=== PATIENT | female | born 1970 | race Caucasian/White ===

== ENCOUNTER 2018-03-17 07:08 | Emergency (ER) | payer OTHER ==
--- OUTSIDE RECORDS SUMMARY | 2018-03-17 07:12 | XMS REPORT | Summary of Care ---
:1970 Author Organization [facility] Address [address] [place] [address]- Encounter [facility](FIN) [id number] Date(s): 03/02/18 - 03/05/[address] [address]- Discharge Disposition: Home or Self Care Attending Physician: Beltran Donohue MD Admitting Physician: Beltran Donohue MD Referring Physician: Beltran Donohue MD Vital Signs Most recent to oldest 1 2 3 [Reference Range]: Height 156.21 cm (02/19/18 10:21 AM) Temperature Oral [96.4-99.1 99.1 DegF 98.3 DegF 99.7 DegF DegF] (03/05/18 4:18 PM) (03/05/18 12:18 PM) *HI* (03/05/18 7:18 AM) Blood Pressure [90-140/60-90 114/72 mmHg 108/70 mmHg 117/75 mmHg mmHg] (03/05/18 4:18 PM) (03/05/18 12:18 PM) (03/05/18 7:18 AM) Respiratory Rate [14-20 18 BRMIN 18 BRMIN 18 BRMIN BRMIN] (03/05/18 4:18 PM) (03/05/18 12:18 PM) (03/05/18 7:18 AM) Peripheral Pulse Rate [60-100 97 bpm 91 bpm 104 bpm bpm] (03/05/18 4:18 PM) (03/05/18 12:18 PM) *HI* (03/05/18 7:18 AM) Weight 165.568 kg (02/19/18 10:21 AM) Body Mass Index 67.85 m2 (02/19/18 10:21 AM) Problem List Condition Effective Dates Status Health Status Informant Morbid obesity(Confirmed) Active Allergies, Adverse Reactions, Alerts Substance Reaction Severity Status penicillin Active aspirin Active NKFA Active Medications acetaminophen 1,000 mg, 31.23 mL, Route: PO, Drug form: LIQ, Q6H, Dosing Weight 165.568, kg, for > or=50 kg, Start date: 03/04/18 0:00:00 CDT, Duration: 30 day, Stop date : 04/02/18 18:00:00 CDT Notes: Max dpokjijkupxds=5030ig/day (4 gm/day). (Same as: Tylenol) Start Date: 03/04/18 Stop Date: 03/05/18 Status: Discontinuedacetaminophen 1,000 mg, 2 tab, Route: PO, Drug form: TAB, Q6H, Dosing Weight 165.568, kg, for > or=50 kg, Startdate: 03/02/18 18:00:00 CDT, Duration: 30 day, Stop date: 6:00:00 CDT Notes: Max acetaminophen 4000 mg/day (4 gm/day). (Same as: Tylenol Extra Strength) Start Date: 03/02/18 Stop Date: 03/03/18 Status: Discontinuedacetaminophen (ANES) Route: IV, Drug form: INJ, ONCE, Stop date: 03/02/18 11:56:00 CDT Start Date: 03/02/18 Stop Date: 03/02/18 Status: Completedacetaminophen-codeine 120 mg-12 mg/5 mL oral liquid 12.5 mL, PO, Q6H, PRN Pain, X 7 day, # 240 mL, 0 Refill(s) Start Date: 03/05/18 Stop Date: 03/12/18 Status: OrderedANES flumazenil 0.2 mg, 2 mL, Route: IVP, Drug form: INJ, PRN, Dosing Weight 165.568, kg, PRN Benzodiazepine Reversal, Initial dose, Start date: 03/02/18 10:24:00 CDT, Duration: 30 day, Stop date: 04/01/18 10:23:00 CDT Notes: (Same as: Romazicon) Start Date: 03/02/18 Stop Date: 03/02/18 Status: DiscontinuedANES HYDROmorphone 0.2 mg, 0.1 mL, Route: IVP, Drug form: INJ, Q5Min, Dosing Weight 165.568, kg, PRN Pain Score 7-10, Start date: 03/02/18 10:24:00 CDT, Duration: 4 doses or times, Stop date: Limited # of times Notes: Same as Dilaudid Start Date: 03/02/18 Stop Date: 03/02/18 Status: DiscontinuedANES labetalol 5 mg, 1 mL, Route: IVP, Drug form: INJ, Q5Min, Dosing Weight 165.568, kg, PRN Elevated BP, Start date: 03/02/18 10:24:00 CDT, Duration: 5 doses or times, Stop date: Limited # of times Notes: Give bolus over 2-3 minutes.(Same as:Normodyne) Start Date: 03/02/18 Stop Date: 03/02/18 Status: DiscontinuedANES naloxone 0.4 mg, 1 mL, Route: IVP, Drug form: INJ, Q2MIN, Dosing Weight 165.568, kg, PRN Narcotic Reversal, Start date: 03/02/18 10:24:00 CDT, Duration: 8 doses or times , Stop date: Limited # of times Notes: Same as Narcan Start Date: 03/02/18 Stop Date: 03/02/18 Status: DiscontinuedANES ondansetron 4 mg, 2 mL, Route: IVP, Drug form: INJ, ONCE, Dosing Weight 165.568, kg, PRN Nausea & Vomiting, Start date: 03/02/18 10:24:00 CDT Notes: (Same as: Jv) MEDICATION WASTE Product Size: 4 mgProduct Wasted: ___ mg Start Date: 03/02/18 Stop Date: 03/02/18 Status: DiscontinuedceFAZolin (ANES) Route: IV, Drug form: INJ, ONCE, Stop date: 03/02/18 11:56:00 CDT Start Date: 03/02/18 Stop Date: 03/02/18 Status: Deletedciprofloxacin 500 mg oral tablet 500 mg=1 tab, PO, Q12H, X 7 day, # 14 tab, 0 Refill(s) Start Date: 03/05/18 Stop Date: 03/12/18 Status: Ordereddexamethasone (ANES) Route: IV, Drug form: INJ, ONCE, Stop date: 03/02/18 11:56:00 CDT Start Date: 03/02/18 Stop Date: 03/02/18 Status: CompletedDilaudid 2 mg, 1 tab, Route: PO, Drug form: TAB, Q3H, Dosing Weight 165.568, kg, PRN Pain Score 7-10, IV to PO per pharmacy protocol due to critical shortage of IV dilaudid, Start date: 03/02/18 15:16:00 CDT, Stop date: 04/01/18 15:15:00 CDT Notes: (Same as: Dilaudid) Start Date: 03/02/18 Stop Date: 03/04/18 Status: Discontinuedenoxaparin 40 mg, 0.4 mL, Route: SUB-Q, Drug form: INJ, Q12H, Dosing Weight 165.568, kg, Start date: 03/03/18 3:30:00 CDT, Stop date: 04/01/18 3:30:00 CDT Notes: (Same as: Lovenox) Start Date: 03/03/18 Stop Date: 03/05/18 Status: DiscontinuedfentaNYL (ANES) Route: IV, Drug form: INJ, ONCE, Stop date: 03/02/18 14:17:00 CDT Start Date: 03/02/18 Stop Date: 03/02/18 Status: CompletedfentaNYL (ANES) Route: IV, Drug form: INJ, ONCE, Stop date: 03/02/18 12:07:00 CDT Start Date: 03/02/18 Stop Date: 03/02/18 Status: CompletedFlagyl 500 mg oral tablet 500 mg=1 tab, PO, Q8H, X 7 day, # 21 tab, 0 Refill(s) Start Date: 03/05/18 Stop Date: 03/12/18 Status: OrderedhydrALAZINE 10 mg, 0.5 mL, Route: IVP, Drug form: INJ, ONCE, Dosing Weight 165.568, kg, Start date: 03/02/18 18:15:00 CDT, Stop date: 03/02/18 18:15:00 CDT Notes: (Same as: Apresoline)Push over 5 minutes Start Date: 03/02/18 Stop Date: 03/04/18 Status: CompletedhydrALAZINE 10 mg, 0.5 mL, Route: IV, Drug form: INJ, ONCE, Dosing Weight 165.568, kg, Priority: NOW, Start date: 03/02/18 18:15:00 CDT, Stop date: 03/02/18 18:15:00 CDT Notes: (Same as: Apresoline)Push over 5 minutes Start Date: 03/02/18 Stop Date: 03/02/18 Status: CompletedLactated Ringers (Bolus) IV 1,000 mL, 1,000 ml/hr, Infuse Over: 1 hr, Route: IV, 1,000, Drug form: INJ, ONCE , Priority: STAT, Dosing Weight 165.568 kg, Start date: 03/03/18 19:46:00 CDT, Stop date: 03/03/18 19:46:00 CDT Start Date: 03/03/18 Stop Date: 03/03/18 Status: CompletedLactated Ringers (Bolus) IV 1,000 mL, 1,000 ml/hr, Infuse Over: 1 hr, Route: IV, 1,000, Drug form: INJ, ONCE , Priority: STAT, Dosing Weight 165.568 kg, Start date: 03/03/18 20:21:00 CDT, Stop date: 03/03/18 20:21:00 CDT Start Date: 03/03/18 Stop Date: 03/04/18 Status: CompletedLactated Ringers Injection IV (ANES) 1000 mL Route: IV, Total Volume: 1,000, Start date: 03/02/18 11:01:00 CDT, Stop date: 12:01:00 CDT Start Date: 03/02/18 Stop Date: 03/02/18 Status: CompletedLactated Ringers Injection IV 1,000 mL 1,000 mL, Rate: 125 ml/hr, Infuse over: 8 hr, Route: IV, Dosing Weight 165.568 kg, Total Volume: 1,000, Start date: 03/02/18 15:14:00 CDT, Stop date: 03/03/18 15:13:00 CDT, 2.75, m2 Start Date: 03/02/18 Stop Date: 03/03/18 Status: CompletedLactated Ringers IV 1,000 mL 1,000 mL, Rate: 80 ml/hr, Infuse over: 12.5 hr, Route: IV, Dosing Weight 165.568 kg, Total Volume: 1,000, Priority: STAT, Start date: 03/02/18 15:14:00 CDT, Duration: 30 day, Stop date: 04/01/18 15:13:00 CDT, 2.75, m2 Start Date: 03/02/18 Stop Date: 03/05/18 Status: Discontinuedlidocaine (ANES) Route: IV, Drug form: INJ, ONCE, Stop date: 03/02/18 12:07:00 CDT Start Date: 03/02/18 Stop Date: 03/02/18 Status: Completedlidocaine 1% injectable solution 0.05 gm, Route: SUB-Q, Drug Form: INJ, Dosing Weight 165.568, kg, ONCE, Start date: 03/05/18 12:32:00 CDT, Stop date: 03/05/18 12:32:00 CDT Notes: Preservative free. (Same as: Xylocaine MPF) Start Date: 03/05/18 Stop Date: 03/05/18 Status: Completedmidazolam (ANES) Route: IV, Drug form: SOLN, ONCE, Stop date: 03/02/18 12:07:00 CDT Start Date: 03/02/18 Stop Date: 03/02/18 Status: Completedondansetron 4 mg, 1 tab, Route: SL, Drug form: TABDIS, Q12H, Dosing Weight 165.568, kg, PRN Nausea & Vomiting, Start date: 03/02/18 15:14:00 CDT, Stop date: 04/01/18 15 :13:00 CDT Notes: (Same as: Zofran ODT) Start Date: 03/02/18 Stop Date: 03/05/18 Status: Discontinuedpromethazine 12.5 mg, 50 mL, Route: IVPB, Drug form: SOLN, Q4H, Dosing Weight 165.568, kg, PRN Nausea & Vomiting, Start date: 03/02/18 15:14:00 CDT, Duration: 30 day, Stop date: 04/01/18 15:13:00 CDT Start Date: 03/02/18 Stop Date: 03/04/18 Status: Discontinuedpropofol (ANES) Route: IV, Drug form: INJ, ONCE, Stop date: 03/02/18 12:07:00 CDT Start Date: 03/02/18 Stop Date: 03/02/18 Status: CompletedProtonix 40 mg, 1 tab, Route: PO, Drug form: ECTAB, Daily, Dosing Weight 165.568, kg, Start date: 03/03/18 16:30:00 CDT, Stop date: 04/01/18 16:30:00 CDT Notes: Tablet should not be chewed or crushed.(Same as: Protonix) Start Date: 03/03/18 Stop Date: 03/05/18 Status: DiscontinuedReglan 10 mg, 2 mL, Route: IVP, Drug form: INJ, Q6H, Dosing Weight 165.568, kg, PRN as needed for nausea/vomiting, Start date: 03/04/18 17:01:00 CDT, Duration: 1 day, Stop date: 03/05/18 17:00:00 CDT Notes: (Same as: Reglan) Start Date: 03/04/18 Stop Date: 03/05/18 Status: DiscontinuedReglan 10 mg, 2 mL, Route: IVP, Drug form: INJ, Q6H, Dosing Weight 165.568, kg, Priority: NOW, Start date: 03/03/18 22:00:00 CDT, Duration: 1 day, Stop date: 18:00:00 CDT Notes: (Same as: Reglan) Start Date: 03/03/18 Stop Date: 03/04/18 Status: Discontinuedremove patch 1 patch, Route: TOP, Drug form: ERFILM, Q72H, PRN Other -See Comment, Start date : 03/03/18 22:46:00 CDT, Duration: 30 day, Stop date: 04/02/18 22:45:00 CDT Start Date: 03/03/18 Stop Date: 03/05/18 Status: Discontinuedrocuronium (ANES) Route: IV, Drug form: INJ, ONCE, Stop date: 03/02/18 12:07:00 CDT Start Date: 03/02/18 Stop Date: 03/02/18 Status: Completedrocuronium (ANES) Route: IV, Drug form: INJ, ONCE, Stop date: 03/02/18 12:47:00 CDT Start Date: 03/02/18 Stop Date: 03/02/18 Status: Completedscopolamine 1.5 mg transdermal film 1 patch, Route: TOP, Drug Form: ERFILM, Dosing Weight 165.568, kg, Q72H, PRN Nausea & Vomiting, NOW, Start date: 03/03/18 22:00:00 CDT, Duration: 30 day , Stop date: 04/02/18 21:59:00 CDT Notes: Change patch every 72 hours (Same as: Transderm-Scop) Start Date: 03/03/18 Stop Date: 03/05/18 Status: Discontinuedsugammadex (ANES) Route: IV, Drug form: SOLN, ONCE, Stop date: 03/02/18 14:59:00 CDT Start Date: 03/02/18 Stop Date: 03/02/18 Status: CompletedTylenol with Codeine #3 oral tablet 12.5 mL, Route: PO, Drug Form: LIQ, Dosing Weight 165.568, kg, Q4H, PRN Pain Score 1-3, Start date: 03/03/18 20:03:00 CDT, Stop date: 04/02/18 20:02:00 CDT Notes: (acetaminophen-codeine 120-12 mg/5 ml oral liq) Do not exceed 4gm/day of acetaminophen. (Same as: Tylenol w/Codeine) Start Date: 03/03/18 Stop Date: 03/05/18 Status: DiscontinuedTylenol with Codeine #3 oral tablet 1 tab, PO, Q4H, PRN Pain Score 1-3, X 5 day, # 30 tab, 0 Refill(s) Start Date: 03/03/18 Stop Date: 03/05/18 Status: DiscontinuedTylenol with Codeine #3 oral tablet 1 tab, Route: PO, Drug Form: TAB, Dosing Weight 165.568, kg, Q4H, PRN Pain Score 1-3, Start date: 03/03/18 6:56:00 CDT, Duration: 30 day, Stop date: 6:55:00 CDT Notes: Do not exceed 4gm/day of acetaminophen. (Same as: Tylenol with Codeine # 3) Start Date: 03/03/18 Stop Date: 03/03/18 Status: Discontinuedvancomycin 2 gm, 500 mL, Route: IVPB, Drug form: SOLN, PRE OP, Start date: 03/02/18 2:00: 00 CDT, Stop date: 03/02/18 23:00:00 CDT, ABX Indication: Surgical Prophylaxis Notes: TIME CRITICAL MEDICATIONSame as: Vancocin Infusion rate< 1000 mg: infuse over 1 [id number] - 1500 mg: infuse over 1.5 [id number] - 2000 mg: infuse over 2 hours> 2001 mg: infuse over 2.5 hours Start Date: 03/02/18 Stop Date: 03/05/18 Status: Discontinuedvancomycin (ANES) Route: IV, Drug form: INJ, ONCE, Stop date: 03/02/18 11:56:00 CDT Start Date: 03/02/18 Stop Date: 03/02/18 Status: CompletedZofran ODT 4 mg, Route: PO, Drug form: TABDIS, ONCE, Dosing Weight 165.568, kg, Start date : 03/02/18 9:23:00 CDT, Stop date: 03/02/18 9:23:00 CDT Start Date: 03/02/18 Stop Date: 03/02/18 Status: Completed Results BLOOD BANK RESULTS Most recent to oldest [Reference Range]: 1 2 3 ABO/Rh B POS *Unknown* (03/02/18 9:45 AM) Antibody Scrn Negative (03/02/18 9:45 AM) ELECTROLYTES Most recent to oldest 1 2 3 [Reference Range]: Sodium Lvl [135-145 mEq/L] 143 mEq/L 142 mEq/L 141 mEq/L (03/05/18 4:00 AM) (03/04/18 3:50 AM) (03/03/18 5:01 AM) Potassium Lvl [3.5-5.1 3.8 mEq/L 3.7 mEq/L 3.8 mEq/L mEq/L] (03/05/18 4:00 AM) (03/04/18 3:50 AM) (03/03/18 5:01 AM) Chloride Lvl [95-109 mEq/L] 106 mEq/L 104 mEq/L 105 mEq/L (03/05/18 4:00 AM) (03/04/18 3:50 AM) (03/03/18 5:01 AM) CO2 [24-32 mEq/L] 25 mEq/L 28 mEq/L 24 mEq/L (03/05/18 4:00 AM) (03/04/18 3:50 AM) (03/03/18 5:01 AM) AGAP [10.0-20.0 mEq/L] 15.8 mEq/L 13.7 mEq/L 15.8 mEq/L (03/05/18 4:00 AM) (03/04/18 3:50 AM) (03/03/18 5:01 AM) CHEM PANEL Most recent to oldest 1 2 3 [Reference Range]: Creatinine Lvl [0.50-1.40 0.75 mg/dL 0.80 mg/dL 0.87 mg/dL mg/dL] (03/05/18 4:00 AM) (03/04/18 3:50 AM) (03/03/18 5:01 AM) eGFR 95 mL/min/1.73m2 1 88 mL/min/1.73m2 2 80 mL/min/1.73m2 3 *NA* *NA* *NA* (03/05/18 4:00 AM) (03/04/18 3:50 AM) (03/03/18 5:01 AM) BUN [7-22 mg/dL] 7 mg/dL 8 mg/dL 12 mg/dL (03/05/18 4:00 AM) (03/04/18 3:50 AM) (03/03/18 5:01 AM) B/C Ratio [6-25] 16 (02/19/18 11:40 AM) Glucose Lvl [70-99 mg/dL] 105 mg/dL 99 mg/dL 131 mg/dL *HI* (03/04/18 3:50 AM) *HI* (03/05/18 4:00 AM) (03/03/18 5:01 AM) Total Protein [6.4-8.4 8.1 g/dL g/dL] (02/19/18 11:40 AM) Albumin Lvl [3.5-5.0 g/dL] 3.7 g/dL (02/19/18 11:40 AM) Globulin [2.7-4.2 g/dL] 4.4 g/dL *HI* (02/19/18 11:40 AM) A/G Ratio [0.7-1.6] 0.8 (02/19/18 11:40 AM) Calcium Lvl [8.5-10.5 7.9 mg/dL 8.3 mg/dL 8.6 mg/dL mg/dL] *LOW* *LOW* (03/03/18 5:01 AM) (03/05/18 4:00 AM) (03/04/18 3:50 AM) ALT [0-65 unit/L] 39 unit/L (02/19/18 11:40 AM) AST [0-37 unit/L] 25 unit/L (02/19/18 11:40 AM) Alk Phos [39-136 unit/L] 79 unit/L (02/19/18 11:40 AM) Bili Total [0.2-1.3 mg/dL] 0.9 mg/dL (02/19/18 11:40 AM) Vitamin B1 [66.5-200.0 128.0 nMol/L 4 nMol/L] *NA* (02/19/18 11:40 AM) Vitamin D, 25-OH, Total 7.4 ng/mL [30.0-100.0 ng/mL] *LOW* (02/19/18 11:40 AM) 1Result Comment: The eGFR is calculated using the CKD-EPI formula. In most young , healthy individualsthe eGFR will be >90 mL/min/1.73m2. The eGFR declines with age. An eGFR of 60-89 may be normal insome populations, particularly the elderly, for whom the CKD-EPI formula has not been extensively validated. Use of the eGFR is not recommended in the following populations: Individuals with unstable creatinine concentrations, including patients and those with serious co-morbid conditions. Patients with extremes in muscle mass or diet. The data above are obtained from the National Kidney Disease Education Program ( NKDEP) which additionally recommends that when the eGFR is used in patients with extremes of body mass index for purposesof drug dosing, the eGFR should be multiplied by the estimated BMI.2Result Comment: The eGFR is calculated using the CKD-EPI formula. In most young, healthy individualsthe eGFR will be >90 mL/min/1.73m2. The eGFR declines with age. An eGFR of 60-89 may be normal insome populations, particularly the elderly, for whom the CKD-EPI formula has not been extensively validated. Use of the eGFR is not recommended in the following populations: Individuals with unstable creatinine concentrations, including patients and those with serious co-morbid conditions. Patients with extremes in muscle mass or diet. The data above are obtained from the National Kidney Disease Education Program ( NKDEP) which additionally recommends that when the eGFR is used in patients with extremes of body mass index for purposesof drug dosing, the eGFR should be multiplied by the estimated BMI.3Result Comment: The eGFR is calculated using the CKD-EPI formula. In most young, healthy individualsthe eGFR will be >90 mL/min/1.73m2. The eGFR declines with age. An eGFR of 60-89 may be normal insome populations, particularly the elderly, for whom the CKD-EPI formula has not been extensively validated. Use of the eGFR is not recommended in the following populations: Individuals with unstable creatinine concentrations, including patients and those with serious co-morbid conditions. Patients with extremes in muscle mass or diet. The data above are obtained from the National Kidney Disease Education Program ( NKDEP) which additionally recommends that when the eGFR is used in patients with extremes of body mass index for purposesof drug dosing, the eGFR should be multiplied by the estimated BMI.4Result Comment: This test was developed and its performance characteristics determined by [facility]. It has not been cleared or approved by the Food and Drug Administration. Performed At: [address] [id number] Candida Grullon MD Ph:[phone] Most recent to oldest [Reference Range]: 1 2 3 S Preg [Negative] Negative *NA* (03/02/18 10:15 AM) URINE AND STOOL Most recent to oldest [Reference Range]: 1 2 3 UA Turbidity [Clear] Slight *ABN* (02/19/18 10:15 AM) UA Color [Yellow] Yellow *NA* (02/19/18 10:15 AM) UA pH [5.0-8.0] 5.0 (02/19/18 10:15 AM) UA Spec Grav [<=1.030] 1.021 (02/19/18 10:15 AM) UA Glucose [Negative mg/dL] Negative mg/dL *NA* (02/19/18 10:15 AM) UA Blood [Negative] Small *ABN* (02/19/18 10:15 AM) UA Ketones [Negative mg/dL] Trace mg/dL *ABN* (02/19/18 10:15 AM) UA Protein [Negative mg/dL] Negative mg/dL (02/19/18 10:15 AM) UA Urobilinogen [0.1-1.0 mg/dL] 2.0 mg/dL *HI* (02/19/18 10:15 AM) UA Bili [Negative] Negative *NA* (02/19/18 10:15 AM) UA Leuk Est [Negative] Moderate *ABN* (02/19/18 10:15 AM) UA Nitrite [Negative] Negative (02/19/18 10:15 AM) UA WBC [0-5 /HPF] 4 /HPF (02/19/18 10:15 AM) UA RBC [0-2 /HPF] 1 /HPF (02/19/18 10:15 AM) UA Bacteria [None Seen /HPF] Occasional /HPF *NA* (02/19/18 10:15 AM) UA Sq Epi [Few /LPF] Moderate /LPF *ABN* (02/19/18 10:15 AM) UA Hyal Cast [0-2 /LPF] 3 /LPF *HI* (02/19/18 10:15 AM) UA Mucus [None Seen /LPF] Few /LPF *NA* (02/19/18 10:15 AM) Micro? Performed *NA* (02/19/18 10:15 AM) HEMATOLOGY Most recent to oldest 1 2 3 [Reference Range]: WBC [3.7-10.4 K/CMM] 11.6 K/CMM 11.3 K/CMM 12.8 K/CMM *HI* *HI* *HI* (03/05/18 4:00 AM) (03/04/18 3:50 AM) (03/03/18 7:49 PM) RBC [4.20-5.40 M/CMM] 4.08 M/CMM 4.18 M/CMM 4.56 M/CMM *LOW* *LOW* (03/03/18 7:49 PM) (03/05/18 4:00 AM) (03/04/18 3:50 AM) Hgb [12.0-16.0 g/dL] 12.4 g/dL 12.5 g/dL 13.9 g/dL (03/05/18 4:00 AM) (03/04/18 3:50 AM) (03/03/18 7:49 PM) Hct [36.0-48.0 %] 37.7 % 38.8 % 42.0 % (03/05/18 4:00 AM) (03/04/18 3:50 AM) (03/03/18 7:49 PM) MCV [80.0-98.0 fL] 92.3 fL 92.8 fL 92.0 fL (03/05/18 4:00 AM) (03/04/18 3:50 AM) (03/03/18 7:49 PM) MCH [27.0-31.0 pg] 30.3 pg 30.0 pg 30.4 pg (03/05/18 4:00 AM) (03/04/18 3:50 AM) (03/03/18 7:49 PM) MCHC [32.0-36.0 g/dL] 32.8 g/dL 32.3 g/dL 33.0 g/dL (03/05/18 4:00 AM) (03/04/18 3:50 AM) (03/03/18 7:49 PM) RDW [11.5-14.5 %] 15.0 % 15.2 % 15.2 % *HI* *HI* *HI* (03/05/18 4:00 AM) (03/04/18 3:50 AM) (03/03/18 7:49 PM) MPV [7.4-10.4 fL] 9.7 fL 10.1 fL 9.3 fL (03/05/18 4:00 AM) (03/04/18 3:50 AM) (03/03/18 7:49 PM) Platelet [133-450 K/CMM] 261 K/CMM 293 K/CMM 339 K/CMM (03/05/18 4:00 AM) (03/04/18 3:50 AM) (03/03/18 7:49 PM) Segs [45.0-75.0 %] 79.7 % 76.9 % 84.1 % *HI* *HI* *HI* (03/05/18 4:00 AM) (03/04/18 3:50 AM) (03/03/18 7:49 PM) Bands [0.0-11.0 %] 0.0 % (03/03/18 7:49 PM) Lymphocytes [20.0-40.0 %] 10.6 % 13.9 % 9.5 % *LOW* *LOW* *LOW* (03/05/18 4:00 AM) (03/04/18 3:50 AM) (03/03/18 7:49 PM) Monocytes [2.0-12.0 %] 8.5 % 8.3 % 6.0 % (03/05/18 4:00 AM) (03/04/18 3:50 AM) (03/03/18 7:49 PM) Eosinophils [0.0-4.0 %] 0.8 % 0.1 % 0.1 % (03/05/18 4:00 AM) (03/04/18 3:50 AM) (03/03/18 7:49 PM) Basophils [0.0-1.0 %] 0.4 % 0.8 % 0.3 % (03/05/18 4:00 AM) (03/04/18 3:50 AM) (03/03/18 7:49 PM) Segs-Bands # [1.5-8.1 9.3 K/CMM 8.7 K/CMM 10.7 K/CMM K/CMM] *HI* *HI* *HI* (03/05/18 4:00 AM) (03/04/18 3:50 AM) (03/03/18 7:49 PM) Lymphocytes # [1.0-5.5 1.2 K/CMM 1.6 K/CMM 1.2 K/CMM K/CMM] (03/05/18 4:00 AM) (03/04/18 3:50 AM) (03/03/18 7:49 PM) Monocytes # [0.0-0.8 K/CMM] 1.0 K/CMM 0.9 K/CMM 0.8 K/CMM *HI* *HI* (03/03/18 7:49 PM) (03/05/18 4:00 AM) (03/04/18 3:50 AM) Eosinophils # [0.0-0.5 0.1 K/CMM 0.1 K/CMM K/CMM] (03/05/18 4:00 AM) (02/19/18 11:40 AM) Basophils # [0.0-0.2 K/CMM] 0.1 K/CMM 0.1 K/CMM (03/04/18 3:50 AM) (02/19/18 11:40 AM) RBC Morph Normal (03/03/18 7:49 PM) Plt Morph Normal (03/03/18 7:49 PM) PT [12.0-14.7 seconds] 14.9 seconds 15.3 seconds 14.3 seconds *HI* *HI* (03/03/18 5:01 AM) (03/05/18 4:00 AM) (03/04/18 3:50 AM) INR [0.85-1.17] 1.16 1.20 1.11 (03/05/18 4:00 AM) *HI* (03/03/18 5:01 AM) (03/04/18 3:50 AM) PTT [22.9-35.8 seconds] 34.2 seconds 36.2 seconds 33.2 seconds (03/05/18 4:00 AM) *HI* (03/03/18 5:01 AM) (03/04/18 3:50 AM) Immunizations No data available for this section Procedures Procedure Date Related Diagnosis Body Site Status Caesarean section Completed D&C - Dilatation and curettage1 Completed 1x's 2 Social History Social History Type Response Smoking Status Never smoker; Exposure to Tobacco Smoke None; Cigarette Smoking Last 365 Days No; Reg Smoking Cessation Counseling No entered on: 02/19/18 Assessment and Plan Extracted from: Title: Progress Note-Bariatric/MIS Author: Lucretia Sotelo DO Date: Patient: ILONEL MOULTON Age: 47 years Sex: Female : 1970 Associated Diagnoses: None Author: Lucretia Sotelo DO Basic Information 47F s/p laparoscopic ventral hernia repair with Phasix ST mesh, lysis of adhesions, small bowel resection, sleeve gastrectomy, and intraoperative endoscopy for morbid obesity and incarcerated right lowe r quadrant ventral hernia containing multiple loops of small bowel. Subjective Pt seen and examined at bedside. Pain well controlled, feels sore at largest incision site but says this is over-all slightly improved from yesterday. Tolerating diet well, no N/V. Ambulating and using IS without issue. Voiding well. Had low grade temp 100.3 at 8pm. No complaints today. Would like to go home. Health Status Allergies: Allergic Reactions (Selected) Severity Not Documented Aspirin- No reactions were documented. NKFA- No reactions were documented. Penicillin- No reactions were documented. Objective Meds Scheduled Meds (3):acetaminophen, enoxaparin, pantoprazole (Protonix) Unscheduled Meds (1):vancomycin PRN Meds (5):acetaminophen-codeine (Tylenol with Codeine #3 oral tablet), metoclopramide (Reglan), ondansetron, remove patch, scopolamine (scopolamine 1.5 mg transdermal film) One Time Meds (2):(Completed) Lactated Ringers Injection IV (Lactated Ringers ( Bolus) IV), (Completed) Lactated Ringers Injection IV (Lactated Ringers (Bolus) IV) Continuous Infusions (1):Lactated Ringers Injection IV 1,000 mL (Lactated Ringers IV 1,000 mL) I&O Input/Output Record In Out Bal 03/04 24hr Tot 2160 0 2160 03/03 24hr Tot 3800 1300 2500 VS/Measurements Vital Signs (last 24 hrs) Last Charted Temp Oral H 99.3DegF (MARCH 05 04:00) Heart Rate Peripheral H 102bpm (MARCH 05 04:00) Resp Rate 18 BRMIN (MARCH 05 04:00) SBP 110 mmHg (MARCH 05 04:00) DBP 71 mmHg (MARCH 05 04:00) SpO2 95 % (MARCH 05 04:00) Physical Exam Gen: NAD, afebrile Abd: soft, mildly distended, obese, appropriately TTP mostly to lower abdominal incision site, incision sites C/D/I with dermabond in place and area without erythema or induration of skin, palpable mass from seroma noted but this is minimally tender to palpation, no G/R/R Review / Management Results review: Labs (Last four charted values) WBC H 11.6 (MARCH 05) H 11.3 (MARCH 04) H 12.8 (MARCH 03) H 13.0 ( MARCH 03) Hgb 12.4 (MARCH 05) 12.5 (MARCH 04) 13.9 (MARCH 03) 12.9 (MARCH 03) Hct 37.7 (MARCH 05) 38.8 (MARCH 04) 42.0 (MARCH 03) 39.6 (MARCH 03) Plt 261 (MARCH 05) 293 (MARCH 04) 339 (MARCH 03) 344 (MARCH 03) Na 143 (MARCH 05) 142 (MARCH 04) 141 (MARCH 03) 141 (FEBRUARY 19) K 3.8 (MARCH 05) 3.7 (MARCH 04) 3.8 (MARCH 03) 3.6 (FEBRUARY 19) CO2 25 (MARCH 05) 28 (MARCH 04) 24 (MARCH 03) 26 (FEBRUARY 19) Cl 106 (MARCH 05) 104 (MARCH 04) 105 (MARCH 03) 105 (FEBRUARY 19) Cr 0.75 (MARCH 05) 0.80 (MARCH 04) 0.87 (MARCH 03) 0.97 (FEBRUARY 19) BUN 7 (MARCH 05) 8 (MARCH 04) 12 (MARCH 03) 16 (FEBRUARY 19) Glucose Random H 105 (MARCH 05) 99 (MARCH 04) H 131 (MARCH 03) H 111 (FEBRUARY 19) Ca L 7.9 (MARCH 05) L 8.3 (MARCH 04) 8.6 (MARCH 03) 9.0 (FEBRUARY 19) PT H 14.9 (MARCH 05) H 15.3 (MARCH 04) 14.3 (MARCH 03) 13.8 (FEBRUARY 19 ) INR 1.16 (MARCH 05) H 1.20 (MARCH 04) 1.11 (MARCH 03) 1.06 (FEBRUARY 19) PTT 34.2 (MARCH 05) H 36.2 (MARCH 04) 33.2 (MARCH 03) 34.3 (FEBRUARY 19) . Impression and Plan 47F s/p laparoscopic ventral hernia repair with Phasix ST mesh, lysis of adhesions, small bowel resection, sleeve gastrectomy, and intraoperative endoscopy for morbid obesity and incarcerated left lower quadrant ventral hernia containing multiple loops of small bowel POD#3. -Feeling much improved overnight. Wbc slightly increased today 11.6 from 11.3. 1 low grade fever around 8pm 100.3, afebrile this am. Large 8cm seroma seen on CT on exam is minimally tender without eryth aminah, induration, drainage, or discharge. Will consider adding antibiotics today to prevent abscess formation -pain control, continues on oral medication -Bariatric FLD -Encourage OOB and IS use -IVF hydration -DVT ppx: lovenox -GI ppx: protonix Lucretia Sotelo DO Bariatric/MIS fellow [phone] Addendum by Beltran Donohue MD on Patient with temp to 100.3 yesterday Likely 03/05/2018 13:15 seroma. Abd soft, nd, appr TTP, wounds c/d/i. Tolerating diet with continued flatus and clinical improvement. Seroma aspirated at bedside with sero sang fluid no purulence.. Plan star prophylactic abx. Cont protocol.
[2018-03-17] MEDS ORDERED: NA CHLORIDE 0.9% 500 ML ONE (07:37)
[2018-03-17] MEDS ORDERED: PIPER/TAZO/NS 3.375gm 3.375 GM/100 ML BAG ONE (08:03)
[2018-03-17] MEDS ORDERED: Levofloxacin 750mg IV 750 MG/150 ML BAG IV ONE (08:13)
[2018-03-17 08:14] LABS: Urine RBC >50 /HPF (NONE SEEN)
[2018-03-17 08:15] LABS: Urine Bacteria >50 /HPF (<20); Urine Culture Reflex Order NOT NEEDED
[2018-03-17] MEDS ORDERED: VANCOMYCIN/NS 1 gm 1 GM/250 ML BAG IV ONE (08:15)
[2018-03-17 08:16] LABS: Urine Blood 3+ (NEG); Urine Glucose NEGATIVE (NEG); Urine Protein 3+ (NEG); Urine pH 5.5 (5.0-7.0)
[2018-03-17 08:21] LABS: Absolute Monocytes 0.9 K/uL (0.1-1.3); Absolute Neutrophil 12.7 K/uL (1.8-8.0); Basophils % 0.3 % (0-1.3); Eosinophils % 0.7 % (0-4.4); Lymphocytes % 6.6 % (15.3-44.8); MCH 29.9 pg (27.0-35.0); MPV 10.6 fL (7.6-11.3); Monocytes % 6.4 % (3.3-12.3)
[2018-03-17 09:17] LABS: Potassium 3.2 mEq/L (3.6-5.0)
[2018-03-17 09:24] LABS: Albumin 2.3 g/dL (3.2-5.5); Bilirubin Direct 0.6 mg/dL (0-0.2); Bilirubin Total 1.4 mg/dL (0.3-1.2); Protein, Total 7.3 g/dL (6.0-8.3)
[2018-03-17 10:01] LABS: Urine White Blood Cell Casts OK
[2018-03-17 10:02] LABS: Blood Morphology Comment NOT SEEN (NOT SEEN); Platelet Estimate ADEQ; Platelets, Giant FEW
--- NOTE | 2018-03-17 10:08 | RAD REPORT ---
EXAM DESCRIPTION: CT - Abdomen Pelvis W Contrast - 03/17/2018 9:50 am CLINICAL HISTORY: Abdominal pain with nausea. COMPARISON: 2008 TECHNIQUE: Computed axial tomography of the abdomen pelvis was obtained. 100 cc Isovue-300 was admin istered intravenously. Oral contrast was not requested which limits evaluation of bowel. All CT scans are performed using dose optimization technique as appropriate and may include automated exposure control or mA/KV adjustment according to patient size. FINDINGS: A 10 centimeter structure is present within predominantly the anterior subcutaneous fat of the pelvis. A small portion extends into the intraperitoneal cavity. 7 centimeter collection of air is present with additional small air bubbles. Minimal fluid component is seen. It appears that the pa tieolya has had a ventral hernia repair. Mild stranding is present within the omentum. Postsurgical changes involve the stomach. The liver, spleen, pancreas, adrenal and kidneys appear unremarkable. There is no evidence of diverticulitis. The appendix appears normal. IMPRESSION: 10 centimeter abscess within predominantly the anterior subcutaneous fat of the pelvis
--- NOTE | 2018-03-17 10:39 | ER ---
Nurse's Notes [facility] Name: Viola Abreu Age: 47 yrs Sex: Female : 1970 Arrival Date: 03/17/2018 Time: 07:16 Bed 20 Private MD: Chi Gutierrez E Diagnosis: Cutaneous abscess of abdominal wall Presentation: 03/17 07:32 Presenting complaint: Patient states: recently had weight loss surgery in [place] and ss noticed her lower abd wound had been inflamed. Reports moderate, "brownish, milky drainage that began this morning. Transition of care: patient was not received from another setting of care. Onset of symptoms was February 2018. Risk Assessment: Do you want to hurt yourself or someone else? Patient reports no desire to harm self or others. Initial Sepsis Screen: Does the patient meet any 2 criteria? No. Patient's initial sepsis screen is negative. Does the patient have a suspected source of infection? Yes: Skin breakdown/wound. Note Pt reports she was prescribed an antibiotic after the surgery, but quit taking it because she began to itch. Care prior to arrival: None. 07:32 Method Of Arrival: Wheelchair 07:32 Acuity: KIRK 3 ss Historical: - Allergies: 08:03 PENICILLINS; sv 08:03 Aspirin; sv - PMHx: 08:25 None; sv - PSHx: 08:03 Hernia repair; sv 08:25 ; sv - Immunization history:: Adult Immunizations up to date. - Family history:: not pertinent. - Social history:: Smoking status: Patient/guardian denies using tobacco. - Ebola Screening: : No symptoms or risks identified at this time. - Hospitalizations: : No recent hospitalization is reported. Screenin:35 Abuse screen: Denies threats or abuse. Denies injuries from another. Nutritional sv screening: No deficits noted. Tuberculosis screening: No symptoms or risk factors identified. Fall Risk None identified. Assessment: 07:35 General: Appears in no apparent distress. uncomfortable, obese, Behavior is calm, sv cooperative, appropriate for age. Pain: Complains of pain in abdomen Pain currently is 6 out of 10 on a pain scale. Quality of pain is described as tender, Is continuous. Neuro: Level of Consciousness is awake, alert, obeys commands, Oriented to person, place, time, situation, Moves all extremities. Full function Gait is steady. Cardiovascular: Patient's skin is warm and dry. Respiratory: Respiratory effort is even, unlabored, Respiratory pattern is regular, symmetrical. :. Derm: Skin is normal, Wound noted suprapubic area Wound is Pt had an incision from a hernia repair and noted when she got up this morning she had some drainage coming possibly from her incision site. Pt has an area from the surgical incision that is open with serosanguinous drainage noted. Musculoskeletal: Range of motion: intact in all extremities. 08:24 Reassessment: Inside lab at bedside for recollect. sv 08:24 Reassessment: Patient appears in no apparent distress at this time. No changes from sv previously documented assessment. Patient and/or family updated on plan of care and expected duration. Pain level reassessed. Patient is alert, oriented x 3, equal unlabored respirations, skin warm/dry/pink. 10:05 Reassessment: Patient appears in no apparent distress at this time. No changes from sv previously documented assessment. Patient and/or family updated on plan of care and expected duration. Pain level reassessed. Patient is alert, oriented x 3, equal unlabored respirations, skin warm/dry/pink. 10:55 Reassessment: Report given to Anastacia Azar RN at [facility]. sv Vital Signs: 07:32 BP 138 / 75; Pulse 119; Resp 22; Pulse Ox 97% on R/A; ss 08:00 BP 113 / 66; Pulse 97; Resp 20; Pulse Ox 96% ; sv 08:02 Temp 98.2(O); sv 10:00 BP 113 / 59; Pulse 88; Resp 16; Pulse Ox 99% ; sv ED Course: 07:16 Patient arrived in ED. sb2 07:16 Chi Gutierrez MD is Private Physician. sb2 07:19 Con Briones MD is Attending Physician. rn 07:20 Briseida Barnes RN is Primary Nurse. sv 07:32 Arm band placed on right wrist. ss 07:34 Triage completed. ss 07:35 Patient has correct armband on for positive identification. Bed in low position. Call sv light in reach. 07:45 Initial lab(s) drawn, by me, sent to lab. First set of blood cultures drawn by me. T\\T\\S sv collected, blood band applied to patient. Inserted saline lock: 22 gauge in right forearm, using aseptic technique. ,using aseptic technique. diffusics Blood collected. Flushed right forearm with 5 ml normal saline. 07:45 Dressings: ABD pad X 1; suprapubic area 4X4s X 1; suprapubic area. sv 08:00 Second set of blood cultures drawn by me. sv 09:49 CT completed. Patient tolerated procedure well. Patient moved to CT via stretcher. Patient moved back from CT. 09:50 CT Abd/Pelvis - W/Contrast In Process Unspecified. EDMS 10:55 No provider procedures requiring assistance completed. Patient transferred, IV remains sv in place. intact. Administered Medications: 08:03 Drug: NS 0.9% 500 ml Route: IV; Rate: bolus; Site: right forearm; sv 08:30 Follow up: Response: No adverse reaction; IV Status: Completed infusion; IV Intake: sv 500ml 08:12 CANCELLED (pt allergy): Zosyn 3.375 grams IVPB once over 60 mins; (mix in NS 100 mL) sv 08:24 Drug: levofloxacin 750 mg Volume: 150 ml; Route: IVPB; Infused Over: 90 mins; Site: sv right forearm; 10:00 Follow up: Response: No adverse reaction; IV Status: Completed infusion; IV Intake: sv 150ml 10:05 Drug: vancoMYCIN 1 grams Route: IVPB; Infused Over: 2 hrs; Site: right forearm; sv 11:30 Follow up: Response: No adverse reaction; IV Status: Completed infusion; IV Intake: sv 200ml Intake: 08:30 IV: 500ml; Total: 500ml. sv 10:00 IV: 150ml; Total: 650ml. sv 11:30 IV: 200ml; Total: 850ml. sv Outcome: 10:38 ER care complete, transfer ordered by . rn 11:31 Transferred by ground EMS to [facility], Transfer form completed. X-rays sent sv w/ patient. Note: [facility]. Report give to [facility]. 11:31 Condition: stable 11:31 Instructed on the need for transfer. 11:31 Patient left the ED. sv Signatures: Dispatcher [employer] EDMS Cameron, Briseida, RN RN sv [place], Lulu sj Briones, Con, MD MD rn Smirch, Nathalia, RN RN ss Billeau, Lindsay sb2
--- NOTE | 2018-03-17 10:39 | EDPHYS ---
Physician Documentation [facility] Name: Viola Abreu Age: 47 yrs Sex: Female : 1970 Arrival Date: 03/17/2018 Time: 07:16 Bed 20 Private MD: Chi Gutierrez E ED Physician Con Briones HPI: 03/17 07:33 This 47 yrs old Female presents to ER via Unassigned with complaints of rn Weakness, wound drainage. 07:34 The patient presents with cellulitis of the abdomen. Description: erythematous, rn swollen, tense. Onset: The symptoms/episode began/occurred this morning. Possible cause(s): unknown. Severity of symptoms: At their worst the symptoms were moderate, in the emergency department the symptoms are unchanged. The patient has not experienced similar symptoms in the past. The patient has been recently seen by a physician:. Reports had hernia repair and weight loss surgery on [address] [facility], this morning wok eup with bed and pants soaked, surgical wound in suprapubic region opened and draining fluid. Reports lightheaded. . Historical: - Allergies: 08:03 PENICILLINS; sv 08:03 Aspirin; sv - PMHx: 08:25 None; sv - PSHx: 08:03 Hernia repair; sv 08:25 ; sv - Immunization history:: Adult Immunizations up to date. - Family history:: not pertinent. - Social history:: Smoking status: Patient/guardian denies using tobacco. - Ebola Screening: : No symptoms or risks identified at this time. - Hospitalizations: : No recent hospitalization is reported. ROS: 07:34 Constitutional: Negative for fever, chills, and weight loss, Eyes: Negative for injury, rn pain, redness, and discharge, Neck: Negative for injury, pain, and swelling, Cardiovascular: Negative for chest pain, palpitations, and edema, Respiratory: Negative for shortness of breath, cough, wheezing, and pleuritic chest pain, Abdomen/GI: Negative for nausea, vomiting, diarrhea, and constipation, MS/Extremity: Negative for injury and deformity, Skin: Negative for injury, rash, and discoloration, Neuro: Negative for headache, numbness, tingling, and seizure. Exam: 07:34 Constitutional: Overweight female, mildly tachypneic Head/Face: Normocephalic, rn atraumatic. Eyes: Pupils equal round and reactive to light, extra-ocular motions intact. Lids and lashes normal. Conjunctiva and sclera are non-icteric and not injected. Cornea within normal limits. Periorbital areas with no swelling, redness, or edema. Neck: Trachea midline, no thyromegaly or masses palpated, and no cervical lymphadenopathy. Supple, full range of motion without nuchal rigidity, or vertebral point tenderness. No Meningismus. Cardiovascular: Regular rate and rhythm with a normal S1 and S2. No gallops, murmurs, or rubs. Normal PMI, no JVD. No pulse deficits. Respiratory: Lungs have equal breath sounds bilaterally, clear to auscultation and percussion. No rales, rhonchi or wheezes noted. No increased work of breathing, no retractions or nasal flaring. Abdomen/GI: soft, mild lower abd tenderness with multiple healed surgical wounds, most inferior/suprapubic wound with small opening, + serosanguinous drainage continuous, + induration of surrounding skin. Skin: + swelling and drainage of lower abd MS/ Extremity: Pulses equal, no cyanosis. Neurovascular intact. Full, normal range of motion. Equal circumference. Neuro: Awake and alert, GCS 15, oriented to person, place, time, and situation. Cranial nerves II-XII grossly intact. Motor strength 5/5 in all extremities. Sensory grossly intact. Cerebellar exam normal. Normal gait. Vital Signs: 07:32 BP 138 / 75; Pulse 119; Resp 22; Pulse Ox 97% on R/A; ss 08:00 BP 113 / 66; Pulse 97; Resp 20; Pulse Ox 96% ; sv 08:02 Temp 98.2(O); sv 10:00 BP 113 / 59; Pulse 88; Resp 16; Pulse Ox 99% ; sv MDM: 07:19 Patient medically screened. rn 10:36 Differential diagnosis: abscess, cellulitis. Data reviewed: vital signs, nurses notes, learning center coordinator test result(s), radiologic studies, and as a result, I will admit patient. Counseling: I had a detailed discussion with the patient and/or guardian regarding: the historical points, exam findings, and any diagnostic results supporting the discharge/admit diagnosis, lab results, radiology results, the need for further work-up and treatment in the hospital. Admission orders: after a detailed discussion of the patient's condition and case, the admit orders are written by me. ED course: Accepted for transfer to [facility] by Dr. Ricks. 03/17 07:33 Order name: Basic Metabolic Panel; Complete Time: 09:29 rn 03/17 07:33 Order name: CBC with Diff; Complete Time: 10:12 rn 03/17 07:33 Order name: Creatinine for Radiology; Complete Time: 09:29 rn 03/17 07:33 Order name: Hepatic Function; Complete Time: 09:29 rn 03/17 07:33 Order name: Lipase; Complete Time: 09:29 rn 03/17 07:33 Order name: Urine Microscopic Only; Complete Time: 08:40 rn 03/17 07:33 Order name: CT Abd/Pelvis - W/Contrast; Complete Time: 10:12 rn 03/17 07:33 Order name: Procalcitonin; Complete Time: 10:12 rn 03/17 07:33 Order name: Blood Culture Adult (2) rn 03/17 07:33 Order name: Type And Screen; Complete Time: 10:12 rn 03/17 07:40 Order name: Urine Dipstick--Ancillary (enter results); Complete Time: 08:40 em1 03/17 07:40 Order name: Urine Culture em1 03/17 07:40 Order name: Urine --Ancillary (enter results); Complete Time: 08:40 [facility] 03/17 08:30 Order name: CBC Smear Scan; Complete Time: 10:12 EDTX 03/17 07:33 Order name: IV Saline Lock; Complete Time: 08:03 rn 03/17 07:33 Order name: Labs collected and sent; Complete Time: 08:03 rn 03/17 07:33 Order name: Urine Dipstick-Ancillary (obtain specimen); Complete Time: 07:37 rn Administered Medications: 08:03 Drug: NS 0.9% 500 ml Route: IV; Rate: bolus; Site: right forearm; sv 08:30 Follow up: Response: No adverse reaction; IV Status: Completed infusion; IV Intake: sv 500ml 08:12 CANCELLED (pt allergy): Zosyn 3.375 grams IVPB once over 60 mins; (mix in NS 100 mL) sv 08:24 Drug: levofloxacin 750 mg Volume: 150 ml; Route: IVPB; Infused Over: 90 mins; Site: sv right forearm; 10:00 Follow up: Response: No adverse reaction; IV Status: Completed infusion; IV Intake: sv 150ml 10:05 Drug: vancoMYCIN 1 grams Route: IVPB; Infused Over: 2 hrs; Site: right forearm; sv 11:30 Follow up: Response: No adverse reaction; IV Status: Completed infusion; IV Intake: sv 200ml Disposition: 03/17/18 10:38 Transfer ordered to Other Acute Care Facility. Diagnosis is Cutaneous abscess of abdominal wall. - Reason for transfer: Higher level of care. - Accepting physician is Dr. Ricks. - Condition is Stable. - Problem is new. - Symptoms have improved. Signatures: Dispatcher [employer] EDBriseida Mistry RN RN sv Nieto, Roman, MD MD tax services intern: (The following items were deleted from the chart) 07:37 07:34 Constitutional: Overweight female, mildly tachypneic Head/Face: Normocephalic, rn atraumatic. Eyes: Pupils equal round and reactive to light, extra-ocular motions intact. Lids and lashes normal. Conjunctiva and sclera are non-icteric and not injected. Cornea within normal limits. Periorbital areas with no swelling, redness, or edema. Neck: Trachea midline, no thyromegaly or masses palpated, and no cervical lymphadenopathy. Supple, full range of motion without nuchal rigidity, or vertebral point tenderness. No Meningismus. Cardiovascular: Regular rate and rhythm with a normal S1 and S2. No gallops, murmurs, or rubs. Normal PMI, no JVD. No pulse deficits. Respiratory: Lungs have equal breath sounds bilaterally, clear to auscultation and percussion. No rales, rhonchi or wheezes noted. No increased work of breathing, no retractions or nasal flaring. Abdomen/GI: Soft, non-tender, with normal bowel sounds. No distension or tympany. No guarding or rebound. No evidence of tenderness throughout. Skin: + swelling and drainage of lower abd MS/ Extremity: Pulses equal, no cyanosis. Neurovascular intact. Full, normal range of motion. Equal circumference. Neuro: Awake and alert, GCS 15, oriented to person, place, time, and situation. Cranial nerves II-XII grossly intact. Motor strength 5/5 in all extremities. Sensory grossly intact. Cerebellar exam normal. Normal gait. rn 08:12 07:38 Zosyn 3.375 grams IVPB once over 60 mins; (mix in NS 100 mL) ordered. palmer morales 11:31 10:38 03/17/2018 10:38 Transfer ordered to Other Acute Care Facility. Diagnosis is sv Cutaneous abscess of abdominal wall. Reason for transfer: Higher level of care. Accepting physician is Dr. Ricks. Condition is Stable. Problem is new. Symptoms have improved. rn
== END 2018-03-17 11:31 ==
LOC: ER 07:08
DX: L02.211 Cutaneous abscess of abdominal wall (principal); Z98.890 Other specified postprocedural states; Z88.0 Allergy status to penicillin; Z88.6 Allergy status to analgesic agent
CPT/HCPCS: 36415; 74177; 80048; 80076; 81003; 81015; 81025; 83690; 84145; 85025; 86850; 86900; 86901; 87040; 87077; 87086; 87088; 87186; 96365; 96366; 96367; 99285; J2543; J3370; Q9967

== ENCOUNTER 2018-05-29 14:37 | Emergency (ER) | payer BC, OTHER ==
[2018-05-29] MEDS ORDERED: NA CHLORIDE 0.9% 1,000 ML ONE (15:42)
[2018-05-29 16:21] LABS: Absolute Lymphocytes (CBC) 1.3 K/uL (0.7-4.9); Absolute Monocytes 0.5 K/uL (0.1-1.3); Absolute Neutrophil 5.7 K/uL (1.8-8.0); Basophils % 0.4 % (0-1.3); Eosinophils % 0.5 % (0-4.4); Hematocrit 44.4 % (36.0-45.0); Lymphocytes % 16.9 % (15.3-44.8); MCV 96.4 fL (80-100); Monocytes % 6.5 % (3.3-12.3)
[2018-05-29 16:37] LABS: Albumin 2.9 g/dL (3.4-5.0); Bilirubin Direct 0.4 mg/dL (0-0.2); Bilirubin Total 1.4 mg/dL (0.2-1.0); Magnesium 1.6 mg/dL (1.8-2.4); Potassium 3.3 mmol/L (3.5-5.1); Protein, Total 7.6 g/dL (6.4-8.2)
[2018-05-29 16:49] LABS: Anisocytosis 2+; Blood Morphology Comment NOTED (NOT SEEN); Platelet Estimate ADEQ; Urine White Blood Cell Casts OK
[2018-05-29] MEDS ORDERED: POTASSIUM CL SA 10 MEQ TAB PO ONE (17:06)
[2018-05-29] MEDS ORDERED: Magnesium Sulfate 2gm IVPB 2 G/50 ML BAG IV ONE (17:06)
--- NOTE | 2018-05-29 17:16 | RAD REPORT ---
EXAM DESCRIPTION: CTThoracic Spine W/o Cont05/29/2018 4:38 pm CLINICAL HISTORY: Numbness from the waist down for 3 weeks COMPARISON: None TECHNIQUE: Computed axial tomography of thoracic spine was obtained with coronal and sagittal recons truction. All CT scans are performed using dose optimization technique as appropriate and may include automated exposure control or mA/KV adjustment according to patient size. FINDINGS: No fracture is seen. No dislocation is noted. An obvious significant bulging/disc herniation is not seen. 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 If the patient's numbness persists MRI of the thoracic spine would be recommended for further evaluat ion
[2018-05-29] MEDS ORDERED: POTASSIUM 25 MEQ EFFERV TAB ONE (17:18)
--- NOTE | 2018-05-29 17:23 | RAD REPORT ---
EXAM DESCRIPTION: CTSpine Lumbar Wo Con05/29/2018 4:38 pm CLINICAL HISTORY: Numbness from the waist down times several weeks COMPARISON: None TECHNIQUE: Computed axial tomography lumbar spine was obtained with coronal and sagittal reconstruct ion. All CT scans are performed using dose optimization technique as appropriate and may include automated exposure control or mA/KV adjustment according to patient size. FINDINGS: Spondylolysis involves L5 No acute fracture is seen Spondylosis L3-4 results in mild central and foraminal stenosis L4-5 disc is thinned with vacuum phenomena. Disc bulge and osteophytes are present. Ligamentum flavum and facet hypertrophy is seen. Marked narrowing of the right neural foramina is present. IMPRESSION: Spondylolysis L5 Spondylosis L4-5 resulting in marked right foraminal stenosis If the patient has numbness persist MRI would be recommended
--- NOTE | 2018-05-29 17:43 | ER ---
Nurse's Notes [facility] Name: Viola Abreu Age: 47 yrs Sex: Female : 1970 Arrival Date: 05/29/2018 Time: 14:38 Bed 2 Private MD: Diagnosis: Spondylosis;Nausea Presentation: 05/29 14:38 Presenting complaint: EMS states: 3 weeks ago, she started having weakness and numbness hj from waist down; states getting worse; S/P bariatric surgery, 03/02/18; was here in the facility for E Coli on 03/17/18; V/S stable;. Transition of care: patient was not received from another setting of care. Onset of symptoms was May 29, 2018. Risk Assessment: Do you want to hurt yourself or someone else? Patient reports no desire to harm self or others. Initial Sepsis Screen: Does the patient meet any 2 criteria? No. Patient's initial sepsis screen is negative. Does the patient have a suspected source of infection? No. Patient's initial sepsis screen is negative. Care prior to arrival: None. 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 - Social history:: Smoking status: Patient/guardian denies using tobacco, Patient/guardian denies using alcohol. - Ebola Screening: : Patient negative for fever greater than or equal to 101.5 degrees Fahrenheit, and additional compatible Ebola Virus Disease symptoms Patient denies exposure to infectious person Patient denies travel to an Ebola-affected area in the 21 days before illness onset. Screenin:53 Abuse screen: Denies threats or abuse. Denies injuries from another. Nutritional jl7 screening: No deficits noted. Tuberculosis screening: No symptoms or risk factors identified. 16:19 Fall Risk IV access (20 points). Total Camacho Fall Scale indicates No Risk (0-24 pts). jl7 Assessment: 14:53 General: Appears in no apparent distress. uncomfortable, obese, Behavior is jl7 cooperative. Pain: Denies pain. Neuro: Level of Consciousness is awake, alert, obeys commands, Oriented to person, place, time, situation. Cardiovascular: Patient's skin is warm and dry. Respiratory: Airway is patent Respiratory effort is even, unlabored, Respiratory pattern is regular, symmetrical. GI: Reports nausea, vomiting, since x 3 weeks. : No signs and/or symptoms were reported regarding the genitourinary system. EENT: No signs and/or symptoms were reported regarding the EENT system. Derm: Skin is pink, warm \T\ dry. Musculoskeletal: No signs and/or symptoms reported regarding the musculoskeletal system. 16:00 Reassessment: No changes from previously documented assessment. Patient and/or family jl7 updated on plan of care and expected duration. Pain level reassessed. Patient is alert, oriented x 3, equal unlabored respirations, skin warm/dry/pink. 17:30 Reassessment: EPR at bedside discussing plan of care. jl7 17:43 Reassessment: Pt will be discharged once Mag infusion is complete. jl7 19:10 Reassessment: Patient and/or family updated on plan of care and expected duration. Pain ea level reassessed. Patient is alert, oriented x 3, equal unlabored respirations, skin warm/dry/pink. Discharge instructions given to patient, verbalized the understanding of instruction. Patient states feeling better. Patient states symptoms have improved. Vital Signs: 14:42 BP 143 / 97; Pulse 101; Resp 18; Temp 98.6(TE); Pulse Ox 100% on R/A; Weight 132.45 kg; Height 5 ft. 2 in. (157.48 cm); Pain 0/10; 15:30 BP 127 / 91; Pulse 87; Resp 16; Pulse Ox 100% ; jl7 16:45 BP 135 / 90; Pulse 97; Resp 16; Pulse Ox 100% ; jl7 17:40 BP 142 / 97; Pulse 82; Resp 16 S; Pulse Ox 100% on R/A; jl7 19:10 BP 148 / 84; Pulse 80; Resp 18; Temp 98; Pulse Ox 99% ; Pain 0/10; ea 14:42 Body Mass Index 53.41 (132.45 kg, 157.48 cm) ED Course: 13:40 Missed attempt(s): 22 gauge in left hand. Bleeding controlled, band aid applied, jl7 catheter tip intact. 13:50 Missed attempt(s): 22 gauge in left forearm. Bleeding controlled, band aid applied, jl7 catheter tip intact. 14:00 Missed attempt(s): 22 gauge in right forearm. Bleeding controlled, band aid applied, jl7 catheter tip intact. 14:15 Initial lab(s) drawn, by ED staff, sent to lab. Inserted saline lock: 24 gauge in right jl7 antecubital area, using aseptic technique. Blood collected. 14:38 Patient arrived in ED. hj 14:41 Triage completed. hj 14:43 Odilon Craig, MELE is Primary Nurse. jl7 14:43 Arm band placed on right wrist. hj 14:53 Patient has correct armband on for positive identification. Placed in gown. Bed in low jl7 position. Call light in reach. Side rails up X2. 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 Pulse ox on. NIBP on. Warm blanket given. 15:11 Amandeep Giordano PA is PHCP. jr8 15:11 Aly Jose MD is Attending Physician. jr8 15:46 Radiology exam delayed due to test not completed at this time. cw1 16:37 CT Thoracic Spine Wo Cont In Process Unspecified. EDMS 16:38 CT Lumbar Spine Wo Con In Process Unspecified. EDMS 17:42 Efraín Palma MD is Referral Physician. jr8 19:13 No provider procedures requiring assistance completed. IV discontinued, intact, ea bleeding controlled, No redness/swelling at site. Pressure dressing applied. Administered Medications: 17:00 Drug: NS 0.9% 1000 ml Route: IV; Rate: 1000 ml; Site: right antecubital; jl7 19:00 Follow up: Response: No adverse reaction; IV Status: Completed infusion; IV Intake: ea 1000ml 17:11 Not Given (Physician Discretion): Potassium Chloride 40 mEq PO once jr8 17:18 Drug: Potassium Effervescent Tablet 25 mEq Route: PO; jl7 17:36 Follow up: Response: No adverse reaction jl7 17:19 Drug: Magnesium Sulfate 2 grams Route: IVPB; Infused Over: 2 hrs; Site: right jl7 antecubital; Intake: 19:00 IV: 1000ml; Total: 1000ml. ea Outcome: 17:42 Discharge ordered by MD. jr8 19:13 Discharged to home via wheelchair, with family. brittni 19:13 Condition: improved 19:13 Discharge instructions given to patient, Instructed on discharge instructions, follow up and referral plans. Demonstrated understanding of instructions, follow-up care. 19:17 Patient left the ED. brittni Signatures: Dispatcher [employer] EDShira Peng cw1 Amandeep Giordano PA PA jr8 Joaquin, Henry, RN RN hj Leal, Jahala, RN RN jl7 Denisse Powers RN RN ea Corrections: (The following items were deleted from the chart) 14:43 14:42 Pulse 101bpm; Resp 18bpm; Pulse Ox 100% RA; 132.45 kg; Height 5 ft. 2 in.; BMI: 53.4; Pain 0/10; hj 17:43 16:45 BP 123 / 82; Pulse 92bpm; Resp 16bpm; Pulse Ox 98%; jl7 jl7 17:43 17:40 BP 111 / 80; Pulse 76bpm; Resp 16bpm; Spontaneous; Pulse Ox 96% RA; jlDelmar jl7
--- NOTE | 2018-05-29 17:43 | EDPHYS ---
Physician Documentation [facility] Name: Viola Abreu Age: 47 yrs Sex: Female : 1970 Arrival Date: 05/29/2018 Time: 14:38 Bed 2 Private MD: ED Physician Aly Jose HPI: 05/29 16:09 This 47 yrs old Female presents to ER via EMS with complaints of Weakness. jr8 16:09 Patient stated that she had gastric sleeve procedure this past february. In March had ecoli jr8 infection from incision site. Since then has been doing ok but continues to have nausea/vomiting post procedure. Over the past 3 weeks stated that she feels tingling in abdomen going around to back and down to legs. Denies trauma. Stated that she feels very weak as well . Severity of symptoms: At their worst the symptoms were moderate in the emergency department the symptoms are unchanged. The patient has not experienced similar symptoms in the past. The patient has not recently seen a physician. Has not followed up with PCP yet. Stated that her doctor recently cancelled her appointment and has not set a new date as of yet . 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 - Social history:: Smoking status: Patient/guardian denies using tobacco, Patient/guardian denies using alcohol. - Ebola Screening: : Patient negative for fever greater than or equal to 101.5 degrees Fahrenheit, and additional compatible Ebola Virus Disease symptoms Patient denies exposure to infectious person Patient denies travel to an Ebola-affected area in the 21 days before illness onset. ROS: 16:09 Eyes: Negative for injury, pain, redness, and discharge, ENT: Negative for injury, jr8 pain, and discharge, Neck: Negative for injury, pain, and swelling, Cardiovascular: Negative for chest pain, palpitations, and edema, Respiratory: Negative for shortness of breath, cough, wheezing, and pleuritic chest pain, MS/Extremity: Negative for injury and deformity, Skin: Negative for injury, rash, and discoloration. 16:09 Abdomen/GI: Positive for nausea and vomiting, Negative for abdominal pain, diarrhea, abdominal cramps, abdominal distension, anorexia, dysphagia, hematemesis, black/tarry stool, rectal pain, rectal bleeding, bowel incontinence, flatulence. 16:09 Back: Positive for pain at rest, pain with movement, of the low back area and mid back area. 16:09 Neuro: Positive for near syncope, tingling, Negative for altered mental status, dizziness, gait disturbance, headache, hearing loss, loss of consciousness, numbness, seizure activity, speech changes, syncope, tinnitus, tremor, visual changes, weakness. Exam: 16:09 Eyes: Pupils equal round and reactive to light, extra-ocular motions intact. Lids and jr8 lashes normal. Conjunctiva and sclera are non-icteric and not injected. Cornea within normal limits. Periorbital areas with no swelling, redness, or edema. ENT: Nares patent. No nasal discharge, no septal abnormalities noted. Tympanic membranes are normal and external auditory canals are clear. Oropharynx with no redness, swelling, or masses, exudates, or evidence of obstruction, uvula midline. Mucous membranes moist. Neck: Trachea midline, no thyromegaly or masses palpated, and no cervical lymphadenopathy. Supple, full range of motion without nuchal rigidity, or vertebral point tenderness. No Meningismus. Cardiovascular: Regular rate and rhythm with a normal S1 and S2. No gallops, murmurs, or rubs. Normal PMI, no JVD. No pulse deficits. Respiratory: Lungs have equal breath sounds bilaterally, clear to auscultation and percussion. No rales, rhonchi or wheezes noted. No increased work of breathing, no retractions or nasal flaring. Back: No spinal tenderness. No costovertebral tenderness. Full range of motion. Skin: Warm, dry with normal turgor. Normal color with no rashes, no lesions, and no evidence of cellulitis. MS/ Extremity: Pulses equal, no cyanosis. Neurovascular intact. Full, normal range of motion. Neuro: Awake and alert, GCS 15, oriented to person, place, time, and situation. Cranial nerves II-XII grossly intact. Motor strength 5/5 in all extremities. Sensory grossly intact. Cerebellar exam normal. Normal gait. 16:09 Abdomen/GI: Inspection: obese scar(s), are noted in the infraumbilical, mid and upper abdomen, infraumbilical incision slightly dehisced. No drainage noted , Bowel sounds: active, Palpation: abdomen is soft and non-tender, in all quadrants, Indicators: McBurney's point is not tender, Garcia's sign is negative, Rovsing's sign is negative, Liver: tenderness, is not appreciated. Vital Signs: 14:42 BP 143 / 97; Pulse 101; Resp 18; Temp 98.6(TE); Pulse Ox 100% on R/A; Weight 132.45 kg; hj Height 5 ft. 2 in. (157.48 cm); Pain 0/10; 15:30 BP 127 / 91; Pulse 87; Resp 16; Pulse Ox 100% ; jl7 16:45 BP 135 / 90; Pulse 97; Resp 16; Pulse Ox 100% ; jl7 17:40 BP 142 / 97; Pulse 82; Resp 16 S; Pulse Ox 100% on R/A; jl7 19:10 BP 148 / 84; Pulse 80; Resp 18; Temp 98; Pulse Ox 99% ; Pain 0/10; ea 14:42 Body Mass Index 53.41 (132.45 kg, 157.48 cm) hj MDM: 15:11 Patient medically screened. jr8 17:26 Data reviewed: vital signs, nurses notes, lab test result(s), radiologic studies, CT jr8 scan. Data interpreted: Pulse oximetry: on room air is 100 %. Interpretation: normal. Counseling: I had a detailed discussion with the patient and/or guardian regarding: the historical points, exam findings, and any diagnostic results supporting the discharge/admit diagnosis, lab results, radiology results, the need for outpatient follow up, a general surgeon, a neurosurgeon, to return to the emergency department if symptoms worsen or persist or if there are any questions or concerns that arise at home. ED course: Detailed discussion with patient about labs and CT results. That the lower leg tingling and weakness could be attributed to the lumbar stenosis noted on CT. Mild electrolyte disturbance noted on labs which have been corrected. Needs to f/u with general surgery for endoscopy to r/u gastritis or stricture from the gastric sleeve surgery . 05/29 15:35 Order name: Basic Metabolic Panel; Complete Time: 16:46 jr8 05/29 15:35 Order name: CBC with Diff; Complete Time: 16:54 8 05/29 15:35 Order name: LFT's; Complete Time: 16:46 05/29 15:35 Order name: Magnesium; Complete Time: 16:46 [facility] 05/29 15:35 Order name: Lipase; Complete Time: 16:46 05/29 16:24 Order name: CBC Smear Scan; Complete Time: 16:54 [facility] 05/29 15:35 Order name: IV Saline Lock; Complete Time: 16:14 05/29 15:35 Order name: Labs collected and sent; Complete Time: 16:14 05/29 15:35 Order name: CT Thoracic Spine Wo Cont; Complete Time: 17:25 05/29 15:35 Order name: CT Lumbar Spine Wo Con; Complete Time: 17:25 05/29 15:35 Order name: O2 Per Protocol; Complete Time: 16:14 05/29 15:35 Order name: O2 Sat Monitoring; Complete Time: 16:14 Administered Medications: 17:00 Drug: NS 0.9% 1000 ml Route: IV; Rate: 1000 ml; Site: right antecubital; jl7 19:00 Follow up: Response: No adverse reaction; IV Status: Completed infusion; IV Intake: ea 1000ml 17:11 Not Given (Physician Discretion): Potassium Chloride 40 mEq PO once 17:18 Drug: Potassium Effervescent Tablet 25 mEq Route: PO; jl7 17:36 Follow up: Response: No adverse reaction 7 17:19 Drug: Magnesium Sulfate 2 grams Route: IVPB; Infused Over: 2 hrs; Site: right [facility] antecubital; Disposition: 05/29/18 17:42 Discharged to Home. Impression: Spondylosis, Nausea. - Condition is Stable. - Discharge Instructions: Lumbosacral Radiculopathy, Nausea, Adult, Upper Endoscopy. - Family Work Release, Medication Reconciliation Form, Thank You Letter, Antibiotic Education, Prescription Opioid Use form. - Follow up: Efraín Palma MD; When: 1 week; Reason: Recheck today's complaints, Continuance of care, Re-evaluation by your physician. - Problem is new. - Symptoms have improved. Signatures: Dispatcher [employer] EDMS Amandeep Giordano PA PA jr8 Damaso Martinez, RN RN Odilon Hemphill RN RN jl7 Denisse Powers, RN MELE ea Corrections: (The following items were deleted from the chart) 17:45 15:35 Urine Dipstick-Ancillary ordered. abdi jl7 19:17 17:42 05/29/2018 17:42 Discharged to Home. Impression: Spondylosis; Nausea. Condition ea is Stable. Forms are Medication Reconciliation Form, Thank You Letter, Antibiotic Education, Prescription Opioid Use. Follow up: Efraín Palma; When: 1 week; Reason: Recheck today's complaints, Continuance of care, Re-evaluation by your physician. Problem is new. Symptoms have improved. jr8
== END 2018-05-29 19:17 | disposition home or self-care (01) ==
LOC: ER 14:37
DX: M47.9 Spondylosis, unspecified (principal); R11.0 Nausea; Z98.84 Bariatric surgery status; Z88.6 Allergy status to analgesic agent; Z88.0 Allergy status to penicillin; I10 Essential (primary) hypertension
CPT/HCPCS: 36415; 72128; 72131; 80048; 80076; 83690; 83735; 85025; 96361; 96374; 99284; J3475; J7030

== ENCOUNTER 2018-06-08 19:01 | Emergency (ER) | payer BC ==
[2018-06-08] MEDS ORDERED: LIDOCAINE 100 MG/5 ML SYRINGE IV ONE (19:02)
[2018-06-08] MEDS ORDERED: NA CHLORIDE 0.9% 1,000 ML IV ONE (19:02)
[2018-06-08] MEDS ORDERED: Caclcium Chloride 10% INJ SYR IV ONE (19:02)
[2018-06-08] MEDS ORDERED: EPINEPHrine 1 MG/10 ML SYR IV ONE (19:02)
--- NOTE | 2018-06-08 19:28 | EDPHYS ---
Physician Documentation [facility] Name: Viola Abreu Age: 47 yrs Sex: Female : 1970 Arrival Date: 06/08/2018 Time: 19:07 Bed 3 Private MD: ED Physician Ricky Olivas HPI: 06/08 19:18 This 47 yrs old Female presents to ER via Unassigned with complaints of CPR. jr8 19:18 Preceding the arrest, the patient collapsed. The arrest occurred at home. Pre-hospital jr8 course: The arrest was witnessed by family. Bystanders at the scene performed CPR. EMS care prior to arrival: initiation of ACLS, intubation was successfully performed, using a 8 ET tube. oxygen, by BVM to assist ventilations. 100% by ET tube. ACLS details: Initial rhythm was PEA. The presenting rhythm is PEA. Airway: oral intubation. The patient has not experienced similar symptoms in the past. The patient has not recently seen a physician. Family stated that she had been in bed for a while. Was helping her up to walk around when she collapsed. No recent illness . 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 - Ebola Screening: : No symptoms or risks identified at this time. - Social history:: Smoking status: unknown. ROS: 19:18 Unable to obtain ROS due to CPR. jr8 Exam: 19:18 Eyes: Pupils: are fixed and dilated, right pupil is approximately 4 mm(s), left pupil jr8 is approximately 4 mm(s). 19:18 ENT: Mouth: Lips: moist, Oral mucosa: pink and intact, moist, ET-Tube in place. 19:18 Neck: External neck: is normal, supple. 19:18 Cardiovascular: Rate: bradycardic, no pulse. PEA, Pulses: not palpable. 19:18 Respiratory: Breath sounds: are clear throughout, Respiratory rate: 14 assisted with BVM. 19:18 Abdomen/GI: Inspection: obese Palpation: soft, in all quadrants. 19:18 Musculoskeletal/extremity: extremities easily moveable. No obvious trauma . 19:18 Skin: pale and cool. cyanotic from chest up. Vital Signs: 19:28 Pulse 0; Resp 0; Temp 98.3(R); Pulse Ox 86% on ETT ambu; Weight 158.76 kg; Height 5 ft. tl2 6 in. (167.64 cm); 19:28 Body Mass Index 56.49 (158.76 kg, 167.64 cm) tl2 John Coma Score: 19:28 Eye Response: none(1). Verbal Response: none(1). Motor Response: none(1). Total: 3. tl2 Procedures: 19:18 Central Line: the site was prepped with Betadine, in sterile fashion, a triple lumen jr8 catheter was inserted, in the right femoral vein, in 1 attempts. placement was verified, by blood return, the site was dressed with 4X4s, Tegaderm, foam tape, using sterile technique, the patient tolerated the procedure, well. MDM: 19:18 Patient medically screened. jr8 19:25 Differential diagnosis: arrythmia, cardiac arrest, respiratory arrest, pulmonary jr8 embolus. Electrolyte disturbance. Data reviewed: vital signs, nurses notes. Counseling: I had a detailed discussion with the patient and/or guardian regarding: the historical points, exam findings, and any diagnostic results supporting the discharge/admit diagnosis. 06/08 19:11 Order name: Cardiac monitoring; Complete Time: 20:53 vd2 06/08 19:11 Order name: IV Saline Lock; Complete Time: 20:53 vd2 06/08 19:11 Order name: O2 Per Protocol; Complete Time: 20:54 vd2 06/08 19:11 Order name: O2 Sat Monitoring; Complete Time: 20:54 vd2 Administered Medications: 19:04 Drug: EPINEPHrine 0.1mg/mL 1:10,000 1 mg Route: IVP; Site: right femoral; tl2 19:06 Follow up: Response: No adverse reaction; Cardiac rhythm is unchanged tl2 19:04 Drug: Calcium Chloride 1 grams Route: IVP; Site: right femoral; tl2 20:56 Follow up: Response: No adverse reaction tl2 19:04 Drug: NS 0.9% 1000 ml Route: IV; Rate: 1 bolus; Site: right femoral; tl2 20:58 Follow up: IV Status: Completed infusion; IV Intake: 500ml tl2 19:05 Drug: EPINEPHrine 0.1mg/mL 1:10,000 1 mg Route: IVP; Site: right femoral; tl2 19:07 Follow up: Response: No adverse reaction; Cardiac rhythm is unchanged tl2 19:05 Drug: EPINEPHrine 0.1mg/mL 1:10,000 1 mg Route: IVP; Site: right femoral; tl2 19:07 Follow up: Response: No adverse reaction; Cardiac rhythm is unchanged tl2 19:05 Drug: Sodium Bicarbonate 1 amp Route: IVP; Site: right femoral; tl2 20:56 Follow up: Response: No adverse reaction tl2 19:09 Drug: EPINEPHrine 0.1mg/mL 1:10,000 1 mg Route: IVP; Site: right femoral; tl2 19:11 Follow up: Response: No adverse reaction; Cardiac rhythm is unchanged tl2 19:10 Drug: EPINEPHrine 0.1mg/mL 1:10,000 1 mg Route: IVP; Site: right femoral; tl2 19:12 Follow up: Response: No adverse reaction; Cardiac rhythm is unchanged tl2 19:13 Drug: Lidocaine 100 mg Route: IVP; Site: right femoral; tl2 20:57 Follow up: Response: No adverse reaction tl2 19:15 Drug: EPINEPHrine 0.1mg/mL 1:10,000 1 mg Route: IVP; Site: right femoral; tl2 20:58 Follow up: Response: No adverse reaction; Cardiac rhythm is unchanged tl2 19:15 Drug: Lidocaine 100 mg Route: IVP; Site: right femoral; tl2 20:58 Follow up: Response: No adverse reaction tl2 Point of Care Testing: Blood Glucose: 19:28 Blood Glucose: 87 mg/dL; tl2 Ranges: Critical Glucose Levels:Adult <50 mg/dl or >400 mg/dl <40 mg/dl or >180 mg/dl Disposition: 19:25 Critical Care:. jr8 06/09 06:31 Co-signature as Attending Physician, Ricky Olivas MD I agree with the assessment and luc plan of care. Disposition: Patient pronounced on 06/08/18 19:17 by Amandeep Giordano. Impression: Cardiac arrest. - Released to Home. Critical care time excluding procedures: 06/08 19:25 Critical care time: Bedside Care: 20 minutes, Family Intervention: 10 minutes. Total jr8 time: 30 minutes Signatures: Dispatcher [employer] EDMS Ricky Olivas MD MD cha Dahse Dorys vd2 Amandeep Giordano PA PA jr8 Pam Faria, RN RN tl2 Corrections: (The following items were deleted from the chart) 19:21 19:12 Chest Single View+RAD.RAD.BRZ ordered. EDMS EDMS 19:27 19:11 CBC+H.LAB.BRZ ordered. EDMS EDMS 19: 19:11 PROTIME (+INR)+COAG.LAB.BRZ ordered. EDMS EDMS 19:27 19:11 PTT, ACTIVATED+COAG.LAB.BRZ ordered. EDMS EDMS 19:28 19:11 BASIC METABOLIC PANEL+C.LAB.BRZ ordered. EDMS EDMS 19:28 19:11 CKMB+C.LAB.BRZ ordered. EDMS EDMS 19:28 19:11 CREATINE PHOSPHOKINASE+C.LAB.BRZ ordered. EDMS EDMS 19:28 19:11 HEPATIC FUNCTION+C.LAB.BRZ ordered. EDMS EDMS 19:28 19:11 MAGNESIUM+C.LAB.BRZ ordered. EDMS EDMS 19:28 19:11 PROBNP+C.LAB.BRZ ordered. EDMS EDMS 19:28 19:12 TROPONIN (EMERG DEPT USE ONLY)+C.LAB.BRZ ordered. EDWA EDMS 20:53 19:11 EKG - Nurse/Tech ordered. vd2 tl2 20:54 19:11 Labs collected and sent ordered. vd2 tl2 20:54 19:11 Urine Dipstick-Ancillary ordered. vd2 tl2 21:00 19:28 06/08/2018 19:28 Patient pronounced on 06/08/2018 at 19:17 by Amandeep Giordano. tl2 Impression: Cardiac arrest. Released to Home. jr8
--- NOTE | 2018-06-08 19:28 | ER ---
Nurse's Notes [facility] Name: Viola Abreu Age: 47 yrs Sex: Female : 1970 Arrival Date: 06/08/2018 Time: 19:07 Bed 3 Private MD: Diagnosis: Cardiac arrest Presentation: 06/08 19:00 Presenting complaint: EMS states: Pt's was walking her around and she collapsed tl2 at approx 1806. CPR started by PD at 1810. EMS arrived at 1814. Pt was asystole and PEA. 4 rounds of epi and 1 round of bicarb given. Pt was intubated en route. IO placed in left tibia. BGL 130. Pt arrived to ER unresponsive, CPR in progress. Care prior to arrival: CPR via thumper performed by bystander performed by EMS and is still in progress Medication(s) given: 4 rounds of epi, 1 round of bicarb IV initiated. IO left tibia. Compressions began at 18:10. 19:00 Method Of Arrival: EMS: [facility] tl2 19:00 Acuity: KIRK 1 tl2 19:45 Transition of care: patient was not received from another setting of care. Onset of tl2 symptoms was June 08, 2018 at 18:06. Risk Assessment: Do you want to hurt yourself or someone else? Patient reports no desire to harm self or others. Initial Sepsis Screen: Does the patient meet any 2 criteria? No. Patient's initial sepsis screen is negative. Does the patient have a suspected source of infection? No. Patient's initial sepsis screen is negative. Triage Assessment: 19:00 Pain: Unable to use pain scale. Patient is unresponsive. 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 - Ebola Screening: : No symptoms or risks identified at this time. - Social history:: Smoking status: unknown. Screenin:00 Abuse screen: Denies threats or abuse. Nutritional screening: No deficits noted. tl2 Tuberculosis screening: No symptoms or risk factors identified. 19:48 Fall Risk None identified. tl2 Assessment: 19:00 CPR assessment: unresponsive, no respiratory effort, intubated, Ambu ventilation, tl2 cyanotic, dependent lividity noted. Cardiac rhythm is PEA. General: Appears obese, Behavior is unresponsive. Neuro: Level of Consciousness is unresponsive. Cardiovascular: Rhythm is PEA. Respiratory: Airway via oral intubation. Derm: Skin is dusky, cyanotic Skin temperature is cool. 19:02 Reassessment: Pulse check- PEA, CPR continued. tl2 19:06 Reassessment: Pulse check- PEA CPR continued. tl2 19:10 Reassessment: Pulse check- PEA CPR continued. tl2 19:12 Reassessment: Pulse check- V fib, CPR continued. tl2 19:14 Reassessment: Shock delivered 200 J. tl2 19:16 Reassessment: Pulse check- V fib- CPR continued. Reassessment: Shock delivered 200 J. tl2 19:17 Reassessment: Pulse check- Asystole- TOD 1916. tl2 19:40 General: Life gift called, Arti Almaguer . 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 tl2 Vital Signs: 19:28 Pulse 0; Resp 0; Temp 98.3(R); Pulse Ox 86% on ETT ambu; Weight 158.76 kg; Height 5 ft. tl2 6 in. (167.64 cm); 19:28 Body Mass Index 56.49 (158.76 kg, 167.64 cm) tl2 [place] Coma Score: 19:28 Eye Response: none(1). Verbal Response: none(1). Motor Response: none(1). Total: 3. tl2 ED Course: 19:00 Patient has correct armband on for positive identification. Intubation: 8.0 Fr. ETT tl2 placed orally. Placement verified by auscultating bilateral breath sounds, Ventilated with Ambu bag. placed by [facility]. Maintain EMS IV. Dressing intact. Site clean \T\ dry. Gauge \T\ site: IO Left Tibia. 19:00 Arm band placed on right wrist. tl2 19:04 Assisted provider with central line placement. Set up central line tray. Triple lumen tl2 line placed in right femoral. Line placed by Ricky Olivas MD Placement verified by blood return, Dressed with Tegaderm, Blood was collected. 19:07 Patient arrived in ED. iw 19:14 Defibrillated with 200 joules. tl2 19:16 Defibrillated with 200 joules. tl2 19:18 Amandeep Giordano PA is PHCP. jr8 19:18 Ricky Olivas MD is Attending Physician. jr8 19:20 Pam Faria RN is Primary Nurse. tl2 19:25 Triage completed. tl2 19:27 Amandeep Giordano PA is Pronouncing Provider. jr8 19:48 Pt , all IV's and tubes remain in place. tl2 Administered Medications: 19:04 Drug: EPINEPHrine 0.1mg/mL 1:10,000 1 mg Route: IVP; Site: right femoral; tl2 19:06 Follow up: Response: No adverse reaction; Cardiac rhythm is unchanged tl2 19:04 Drug: Calcium Chloride 1 grams Route: IVP; Site: right femoral; tl2 20:56 Follow up: Response: No adverse reaction tl2 19:04 Drug: NS 0.9% 1000 ml Route: IV; Rate: 1 bolus; Site: right femoral; tl2 20:58 Follow up: IV Status: Completed infusion; IV Intake: 500ml tl2 19:05 Drug: EPINEPHrine 0.1mg/mL 1:10,000 1 mg Route: IVP; Site: right femoral; tl2 19:07 Follow up: Response: No adverse reaction; Cardiac rhythm is unchanged tl2 19:05 Drug: EPINEPHrine 0.1mg/mL 1:10,000 1 mg Route: IVP; Site: right femoral; tl2 19:07 Follow up: Response: No adverse reaction; Cardiac rhythm is unchanged tl2 19:05 Drug: Sodium Bicarbonate 1 amp Route: IVP; Site: right femoral; tl2 20:56 Follow up: Response: No adverse reaction tl2 19:09 Drug: EPINEPHrine 0.1mg/mL 1:10,000 1 mg Route: IVP; Site: right femoral; tl2 19:11 Follow up: Response: No adverse reaction; Cardiac rhythm is unchanged tl2 19:10 Drug: EPINEPHrine 0.1mg/mL 1:10,000 1 mg Route: IVP; Site: right femoral; tl2 19:12 Follow up: Response: No adverse reaction; Cardiac rhythm is unchanged tl2 19:13 Drug: Lidocaine 100 mg Route: IVP; Site: right femoral; tl2 20:57 Follow up: Response: No adverse reaction tl2 19:15 Drug: EPINEPHrine 0.1mg/mL 1:10,000 1 mg Route: IVP; Site: right femoral; tl2 20:58 Follow up: Response: No adverse reaction; Cardiac rhythm is unchanged tl2 19:15 Drug: Lidocaine 100 mg Route: IVP; Site: right femoral; tl2 20:58 Follow up: Response: No adverse reaction tl2 Point of Care Testing: Blood Glucose: 19:28 Blood Glucose: 87 mg/dL; tl2 Ranges: Intake: 20:58 IV: 500ml; Total: 500ml. tl2 Outcome: 19:17 Outcome Patient tl2 19:17 Patient : Time of 19:17 Pronounced by Amandeep SENA 19:17 Condition: 21:00 Patient left the ED. tl2 Signatures: Manju Naranjo RN RN Amandeep Giordano PA PA jr8 Pam Faria RN RN tl2
== END 2018-06-08 21:00 | disposition expired ==
LOC: ER 19:01
PROC: 06HM33Z Insertion of Infusion Device into Right Femoral Vein, Percutaneous Approach (ICD-10-PCS; principal; 2018-06-08)
PROC: 5A12012 Performance of Cardiac Output, Single, Manual (ICD-10-PCS; 2018-06-08)
DX: I46.9 Cardiac arrest, cause unspecified (principal); I10 Essential (primary) hypertension; Z88.0 Allergy status to penicillin; Z88.6 Allergy status to analgesic agent
CPT/HCPCS: 31500; 92950; 92960; 96361; 96374; 96375; 99285; J0171; J7030